=== PATIENT | female | born 1940 | race Caucasian/White ===

== ENCOUNTER 2023-10-28 10:56 | Outpatient (RCR) | payer MEDICARE, SELFPAY | END 2023-10-30 11:52 | disposition home or self-care (01) | LOC: RPT 10:56 | PROVIDERS: ATTENDING PHYSICIAN Specialist; PRIMARYCARE PHYSICIAN Family Medicine | DX: R15.2 Fecal urgency (principal); N39.41 Urge incontinence; M62.89 Other specified disorders of muscle; R27.8 Other lack of coordination; M62.81 Muscle weakness (generalized) | CPT/HCPCS: 97014; 97110; 97112; 97530 ==

== ENCOUNTER 2023-12-06 10:57 | Outpatient (RCR) | payer MEDICARE, SELFPAY | END 2023-12-06 23:59 | disposition home or self-care (01) | LOC: RPT 10:57 | PROVIDERS: ATTENDING PHYSICIAN Family Medicine | DX: R26.89 Other abnormalities of gait and mobility (principal); Z73.6 Limitation of activities due to disability; R53.83 Other fatigue | CPT/HCPCS: 97110; 97112; 97162 ==

== ENCOUNTER → 2023-12-13 12:21 | Outpatient (REF) | payer MEDICARE, SELFPAY ==
[2023-12-13 13:00] LABS: % Basophils 0.1 % (0-2); % Eosinophils 2.7 % (0-6); % Immature Granulocytes 0.4 % (0-0.5); % Lymphocytes 19.5 % (20.5-51.1); % Monocytes 7.5 % (1.7-9.3); % Neutrophils 69.8 % (42.2-75.2); Absolute Eosinophils 0.2 10^3/uL (0-0.7); Absolute Lymphocytes 1.4 10^3/uL (1.2-3.4); Absolute Monocytes 0.5 10^3/uL (0.1-0.6); Hematocrit 38.7 % (37.0-47.0); Mean Corp Hgb Conc. 33.6 g/dL (33.0-37.0); Mean Corpuscular Hgb 31.9 pg (27.0-31.0); Mean Corpuscular Volume 94.9 fL (81.0-99.0); Mean Platelet Volume 9.7 fL (7.4-10.4); Nucleated Red Blood Cells % 0 %; Platelet Count 269 10^3/uL (130-400); Red Blood Cell Count 4.08 10^6/uL (4.20-5.40); Red Cell Dist. Width 11.9 % (11.5-14.5); White Blood Cell Count 7.1 10^3/uL (4.8-10.8)
[2023-12-13 13:15] LABS: Iron 173 ug/dl (37-170)
[2023-12-13 13:25] LABS: Percent Saturation 66 % (20-50); Total Iron Binding Capacity 262 ug/dl (265-497)
[2023-12-13 13:49] LABS: Ferritin 92.6 ng/ml (11.1-264.0)
== END ==
LOC: REG 12:21
PROVIDERS: ATTENDING PHYSICIAN Internal Medicine Hematology & Oncology
DX: E83.110 Hereditary hemochromatosis (principal)
CPT/HCPCS: 36415; 82728; 83540; 83550; 85025

== ENCOUNTER 2024-01-06 12:51 | Outpatient (RCR) | payer MEDICARE, SELFPAY | END 2024-01-06 23:59 | disposition home or self-care (01) | LOC: RPT 12:51 | PROVIDERS: ATTENDING PHYSICIAN Family Medicine | DX: R26.89 Other abnormalities of gait and mobility (principal); Z73.6 Limitation of activities due to disability; R53.83 Other fatigue | CPT/HCPCS: 97110; 97112; 97530 ==

== ENCOUNTER 2024-01-10 11:11 | Outpatient (RCR) | payer MEDICARE, SELFPAY | END 2024-01-17 07:27 | disposition home or self-care (01) | LOC: RPT 11:11 | PROVIDERS: ATTENDING PHYSICIAN Family Medicine | DX: R26.89 Other abnormalities of gait and mobility (principal); Z73.6 Limitation of activities due to disability; M62.81 Muscle weakness (generalized) | CPT/HCPCS: 97110; 97112; 97530 ==

== ENCOUNTER → 2024-04-18 08:15 | Outpatient (REF) | payer MEDICARE, SELFPAY ==
[2024-04-18 09:12] LABS: % Eosinophils 3.5 % (0-6); % Immature Granulocytes 0.2 % (0-0.5); % Neutrophils 67.3 % (42.2-75.2); Absolute Eosinophils 0.2 10^3/uL (0-0.7); Absolute Lymphocytes 1.2 10^3/uL (1.2-3.4); Absolute Monocytes 0.5 10^3/uL (0.1-0.6); Absolute Neutrophils 3.9 10^3/uL (1.4-6.5); Hematocrit 39.4 % (37.0-47.0); Hemoglobin 13.1 g/dL (12.0-16.0); Mean Corp Hgb Conc. 33.2 g/dL (33.0-37.0); Mean Corpuscular Hgb 31.6 pg (27.0-31.0); Mean Corpuscular Volume 94.9 fL (81.0-99.0); Mean Platelet Volume 9.9 fL (7.4-10.4); Nucleated Red Blood Cells % 0 %; Platelet Count 221 10^3/uL (130-400); Red Blood Cell Count 4.15 10^6/uL (4.20-5.40); Red Cell Dist. Width 11.6 % (11.5-14.5); White Blood Cell Count 5.7 10^3/uL (4.8-10.8)
[2024-04-18 09:37] LABS: ALT (SGPT) 17 U/L (0-35); AST (SGOT) 28 U/L (14-36); Albumin 4.1 g/dl (3.5-5.0); Alkaline Phosphatase 94 U/L (38-126); Blood Urea Nitrogen 18 mg/dl (7-17); Calcium 9.8 mg/dl (8.4-10.2); Carbon Dioxide 28 mmol/L (22-30); Chloride 104 mmol/L (98-107); Glucose 95 mg/dl (70-99); Potassium 4.5 mmol/L (3.5-5.1); Sodium 138 mmol/L (135-145); Total Bilirubin 0.5 mg/dl (0.2-1.3); Total Protein 6.4 g/dl (6.3-8.2); eGFR > 60.00
== END ==
LOC: REG 08:15
PROVIDERS: ATTENDING PHYSICIAN Obstetrics & Gynecology Gynecologic Oncology; FAMILY PHYSICIAN Family Medicine
DX: C54.1 Malignant neoplasm of endometrium (principal)
CPT/HCPCS: 36415; 80053; 85025; 86304

== ENCOUNTER → 2024-05-07 14:20 | Outpatient (REF) | payer MEDICARE, SELFPAY | LOC: RAD 14:20 | PROVIDERS: ATTENDING PHYSICIAN Obstetrics & Gynecology Gynecologic Oncology; FAMILY PHYSICIAN Family Medicine | DX: C54.1 Malignant neoplasm of endometrium (principal); E83.110 Hereditary hemochromatosis | CPT/HCPCS: 71260; 74177; Q9967 ==

== ENCOUNTER → 2024-06-13 07:56 | Outpatient (REF) | payer MEDICARE, SELFPAY ==
[2024-06-13 09:45] LABS: % Eosinophils 4.4 % (0-6); % Immature Granulocytes 0.2 % (0-0.5); % Lymphocytes 18.8 % (20.5-51.1); % Monocytes 8.6 % (1.7-9.3); Absolute Eosinophils 0.2 10^3/uL (0-0.7); Absolute Lymphocytes 0.9 10^3/uL (1.2-3.4); Absolute Monocytes 0.4 10^3/uL (0.1-0.6); Absolute Neutrophils 3.4 10^3/uL (1.4-6.5); Hematocrit 38.4 % (37.0-47.0); Hemoglobin 12.8 g/dL (12.0-16.0); Mean Corp Hgb Conc. 33.3 g/dL (33.0-37.0); Mean Corpuscular Hgb 32.8 pg (27.0-31.0); Mean Corpuscular Volume 98.5 fL (81.0-99.0); Mean Platelet Volume 10.3 fL (7.4-10.4); Nucleated Red Blood Cells % 0 %; Platelet Count 233 10^3/uL (130-400); Red Cell Dist. Width 12.6 % (11.5-14.5)
[2024-06-13 10:13] LABS: Iron 145 ug/dl (37-170)
[2024-06-13 10:23] LABS: Percent Saturation 64 % (20-50); Total Iron Binding Capacity 224 ug/dl (265-497)
[2024-06-13 10:50] LABS: Ferritin 28.5 ng/ml (11.1-264.0)
== END ==
LOC: REG 07:56
PROVIDERS: ATTENDING PHYSICIAN Internal Medicine Hematology & Oncology; FAMILY PHYSICIAN Family Medicine
DX: E83.110 Hereditary hemochromatosis (principal); C54.1 Malignant neoplasm of endometrium
CPT/HCPCS: 36415; 82728; 83540; 83550; 85025

== ENCOUNTER → 2024-10-16 10:48 | Outpatient (REF) | payer MEDICARE, SELFPAY | LOC: REG 10:48 | PROVIDERS: ATTENDING PHYSICIAN Specialist; FAMILY PHYSICIAN Family Medicine | DX: R19.7 Diarrhea, unspecified (principal) | CPT/HCPCS: 83993; 87045; 87046; 87324; 87328; 87329; 87427; 87449; 89055 ==

== ENCOUNTER → 2024-11-07 07:24 | Outpatient (REF) | payer MEDICARE, SELFPAY ==
[2024-11-07 08:13] LABS: % Basophils 0.2 % (0-2); % Eosinophils 3.5 % (0-6); % Immature Granulocytes 0.2 % (0-0.5); % Lymphocytes 22.6 % (20.5-51.1); % Monocytes 7.4 % (1.7-9.3); % Neutrophils 66.1 % (42.2-75.2); Absolute Eosinophils 0.2 10^3/uL (0-0.7); Absolute Lymphocytes 1.3 10^3/uL (1.2-3.4); Absolute Monocytes 0.4 10^3/uL (0.1-0.6); Absolute Neutrophils 3.8 10^3/uL (1.4-6.5); Hematocrit 40.6 % (37.0-47.0); Hemoglobin 13.3 g/dL (12.0-16.0); Mean Corp Hgb Conc. 32.8 g/dL (33.0-37.0); Mean Corpuscular Hgb 31.9 pg (27.0-31.0); Mean Corpuscular Volume 97.4 fL (81.0-99.0); Mean Platelet Volume 9.5 fL (7.4-10.4); Nucleated Red Blood Cells % 0 %; Platelet Count 224 10^3/uL (130-400); Red Blood Cell Count 4.17 10^6/uL (4.20-5.40); Red Cell Dist. Width 11.8 % (11.5-14.5); White Blood Cell Count 5.7 10^3/uL (4.8-10.8)
[2024-11-07 08:44] LABS: ALT (SGPT) 21 U/L (0-35); AST (SGOT) 30 U/L (14-36); Albumin 4.3 g/dl (3.5-5.0); Alkaline Phosphatase 86 U/L (38-126); Blood Urea Nitrogen 23 mg/dl (7-17); Calcium 9.7 mg/dl (8.4-10.2); Carbon Dioxide 31 mmol/L (22-30); Chloride 100 mmol/L (98-107); Glucose 95 mg/dl (70-99); HDL Cholesterol 65 mg/dl; LDL Cholesterol, Calculated 131 mg/dl; Potassium 4.3 mmol/L (3.5-5.1); Sodium 139 mmol/L (135-145); Total Bilirubin 0.4 mg/dl (0.2-1.3); Total Cholesterol 234 mg/dl (50-199); Total Protein 6.7 g/dl (6.3-8.2); Triglyceride 190 mg/dl (10-149); Very Low Density Lipoprotein 38 mg/dl (0-30); eGFR > 60.00
[2024-11-07 09:11] LABS: CA 125 6.9 U/mL (0-35)
[2024-11-07 09:16] LABS: AFP Male/Tumor Marker 3.36 ng/ml
== END ==
LOC: REG 07:24
PROVIDERS: ATTENDING PHYSICIAN Obstetrics & Gynecology Gynecologic Oncology; FAMILY PHYSICIAN Family Medicine; OTHER PHYSICIAN Psychiatry & Neurology Psychiatry; REFERRING PHYSICIAN Specialist
DX: E83.119 Hemochromatosis, unspecified (principal); F20.0 Paranoid schizophrenia; E88.810 Metabolic syndrome; C54.1 Malignant neoplasm of endometrium
CPT/HCPCS: 36415; 80053; 80061; 82105; 85025; 86304

== ENCOUNTER → 2024-11-18 07:12 | Outpatient (REF) | payer MEDICARE, SELFPAY | LOC: RAD 07:12 | PROVIDERS: ATTENDING PHYSICIAN Specialist; FAMILY PHYSICIAN Family Medicine | DX: E83.10 Disorder of iron metabolism, unspecified (principal) | CPT/HCPCS: 76700 ==

== ENCOUNTER → 2024-12-12 10:25 | Outpatient (REF) | payer MEDICARE, SELFPAY ==
[2024-12-12 11:51] LABS: % Eosinophils 2.6 % (0-6); % Immature Granulocytes 0.3 % (0-0.5); % Lymphocytes 14.8 % (20.5-51.1); % Monocytes 7.6 % (1.7-9.3); % Neutrophils 74.7 % (42.2-75.2); Absolute Eosinophils 0.2 10^3/uL (0-0.7); Absolute Lymphocytes 0.9 10^3/uL (1.2-3.4); Absolute Monocytes 0.5 10^3/uL (0.1-0.6); Absolute Neutrophils 4.6 10^3/uL (1.4-6.5); Hematocrit 40.4 % (37.0-47.0); Hemoglobin 13.3 g/dL (12.0-16.0); Mean Corp Hgb Conc. 32.9 g/dL (33.0-37.0); Mean Corpuscular Hgb 31.8 pg (27.0-31.0); Mean Corpuscular Volume 96.7 fL (81.0-99.0); Mean Platelet Volume 10.5 fL (7.4-10.4); Nucleated Red Blood Cells % 0 %; Platelet Count 229 10^3/uL (130-400); Red Blood Cell Count 4.18 10^6/uL (4.20-5.40); Red Cell Dist. Width 11.8 % (11.5-14.5); White Blood Cell Count 6.1 10^3/uL (4.8-10.8)
[2024-12-12 12:17] LABS: ALT (SGPT) 16 U/L (0-35); AST (SGOT) 26 U/L (14-36); Albumin 4.4 g/dl (3.5-5.0); Alkaline Phosphatase 101 U/L (38-126); Blood Urea Nitrogen 21 mg/dl (7-17); Carbon Dioxide 28 mmol/L (22-30); Chloride 100 mmol/L (98-107); Glucose 96 mg/dl (70-99); HDL Cholesterol 58 mg/dl; Iron 111 ug/dl (37-170); LDL Cholesterol, Calculated 118 mg/dl; Potassium 4.5 mmol/L (3.5-5.1); Sodium 137 mmol/L (135-145); Total Bilirubin 0.5 mg/dl (0.2-1.3); Total Cholesterol 207 mg/dl (50-199); Total Protein 6.5 g/dl (6.3-8.2); Triglyceride 159 mg/dl (10-149); Very Low Density Lipoprotein 31 mg/dl (0-30); eGFR > 60.00
[2024-12-12 12:26] LABS: Percent Saturation 42 % (20-50); Total Iron Binding Capacity 260 ug/dl (265-497)
[2024-12-12 12:45] LABS: TSH 2.83 uIU/ml (0.47-4.68)
[2024-12-12 12:49] LABS: Ferritin 22.1 ng/ml (11.1-264.0)
[2024-12-12 12:57] LABS: Glycohemoglobin (HgbA1c) 5.3 % (4.0-5.6)
== END ==
LOC: REG 10:25
PROVIDERS: ATTENDING PHYSICIAN Family Medicine; REFERRING PHYSICIAN Specialist
DX: E66.9 Obesity, unspecified (principal); E03.9 Hypothyroidism, unspecified; I10 Essential (primary) hypertension; K21.9 Gastro-esophageal reflux disease without esophagitis; F41.9 Anxiety disorder, unspecified; M81.0 Age-related osteoporosis without current pathological fracture; F20.9 Schizophrenia, unspecified; Z12.31 Encounter for screening mammogram for malignant neoplasm of breast; Z85.42 Personal history of malignant neoplasm of other parts of uterus; R26.89 Other abnormalities of gait and mobility; N32.81 Overactive bladder; E83.110 Hereditary hemochromatosis
CPT/HCPCS: 36415; 80053; 80061; 82728; 83036; 83540; 83550; 84443; 85025

== ENCOUNTER → 2025-03-27 08:14 | Outpatient (REF) | payer MEDICARE, SELFPAY ==
[2025-03-27 09:27] LABS: % Eosinophils 3.3 % (0-6); % Immature Granulocytes 0.4 % (0-0.5); % Lymphocytes 17.1 % (20.5-51.1); % Monocytes 8.5 % (1.7-9.3); % Neutrophils 70.7 % (42.2-75.2); Absolute Eosinophils 0.2 10^3/uL (0-0.7); Absolute Lymphocytes 1.3 10^3/uL (1.2-3.4); Absolute Monocytes 0.6 10^3/uL (0.1-0.6); Absolute Neutrophils 5.2 10^3/uL (1.4-6.5); Hematocrit 36.8 % (37.0-47.0); Hemoglobin 12.4 g/dL (12.0-16.0); Mean Corp Hgb Conc. 33.7 g/dL (33.0-37.0); Mean Corpuscular Hgb 32.8 pg (27.0-31.0); Mean Corpuscular Volume 97.4 fL (81.0-99.0); Mean Platelet Volume 10.1 fL (7.4-10.4); Nucleated Red Blood Cells % 0 %; Platelet Count 232 10^3/uL (130-400); Red Blood Cell Count 3.78 10^6/uL (4.20-5.40); Red Cell Dist. Width 11.8 % (11.5-14.5); White Blood Cell Count 7.3 10^3/uL (4.8-10.8)
[2025-03-27 10:21] LABS: ALT (SGPT) 16 U/L (0-35); AST (SGOT) 22 U/L (14-36); Alkaline Phosphatase 83 U/L (38-126); Blood Urea Nitrogen 36 mg/dl (7-17); Calcium 10.3 mg/dl (8.4-10.2); Carbon Dioxide 26 mmol/L (22-30); Chloride 103 mmol/L (98-107); Glucose 80 mg/dl (70-99); Sodium 136 mmol/L (135-145); Total Bilirubin 0.3 mg/dl (0.2-1.3); eGFR 54.87
[2025-03-27 10:55] LABS: Total Protein 6.2 g/dl (6.3-8.2)
== END ==
LOC: REG 08:14
PROVIDERS: ATTENDING PHYSICIAN Family Medicine
DX: I10 Essential (primary) hypertension (principal); R60.9 Edema, unspecified
CPT/HCPCS: 36415; 80053; 85025

== ENCOUNTER → 2025-04-07 17:14 | Outpatient (REF) | payer MEDICARE, SELFPAY | LOC: RAD 17:14 | PROVIDERS: ATTENDING PHYSICIAN Specialist; FAMILY PHYSICIAN Family Medicine | DX: N39.0 Urinary tract infection, site not specified (principal) | CPT/HCPCS: 74170; Q9967 ==

== ENCOUNTER → 2025-09-20 11:00 | Outpatient (REF) | payer MEDICARE, SELFPAY ==
[2025-09-20 12:08] LABS: Hematocrit 39.2 % (37.0-47.0); Hemoglobin 13.0 g/dL (12.0-16.0); Mean Corp Hgb Conc. 33.2 g/dL (33.0-37.0); Mean Corpuscular Volume 97.8 fL (81.0-99.0); Nucleated Red Blood Cells % 0 %; Platelet Count 269 10^3/uL (130-400); Red Cell Dist. Width 11.8 % (11.5-14.5)
[2025-09-20 12:38] LABS: ALT (SGPT) 16 U/L (0-35); AST (SGOT) 22 U/L (14-36); Albumin 4.1 g/dl (3.5-5.0); Alkaline Phosphatase 86 U/L (38-126); Blood Urea Nitrogen 25 mg/dl (7-17); Calcium 10.3 mg/dl (8.4-10.2); Carbon Dioxide 29 mmol/L (22-30); Chloride 100 mmol/L (98-107); Glucose 74 mg/dl (70-99); Iron 95 ug/dl (37-170); Potassium 4.5 mmol/L (3.5-5.1); Sodium 133 mmol/L (135-145); Total Protein 6.6 g/dl (6.3-8.2); eGFR > 60.00
[2025-09-20 12:48] LABS: Total Iron Binding Capacity 242 ug/dl (265-497)
[2025-09-20 13:12] LABS: Ferritin 27.4 ng/ml (11.1-264.0)
== END ==
LOC: REG 11:00
PROVIDERS: ATTENDING PHYSICIAN Family Medicine
DX: I10 Essential (primary) hypertension (principal); R60.9 Edema, unspecified; E03.9 Hypothyroidism, unspecified; E83.110 Hereditary hemochromatosis; E66.9 Obesity, unspecified; M81.0 Age-related osteoporosis without current pathological fracture; F20.9 Schizophrenia, unspecified; Z12.31 Encounter for screening mammogram for malignant neoplasm of breast; Z85.42 Personal history of malignant neoplasm of other parts of uterus; N32.81 Overactive bladder; R26.89 Other abnormalities of gait and mobility
CPT/HCPCS: 36415; 80053; 82728; 83540; 83550; 85025

== ENCOUNTER 2025-11-10 13:41 | Outpatient (RCR) | payer MEDICARE, SELFPAY | END 2025-11-10 23:59 | disposition home or self-care (01) | LOC: RPT 13:41 | PROVIDERS: ATTENDING PHYSICIAN Family Medicine | DX: R26.89 Other abnormalities of gait and mobility (principal); Z73.6 Limitation of activities due to disability; R26.2 Difficulty in walking, not elsewhere classified; M62.81 Muscle weakness (generalized); M25.562 Pain in left knee; Z91.81 History of falling | CPT/HCPCS: 97110; 97112; 97116; 97162; 97530 ==